=== PATIENT | female | born 1980 | race Caucasian/White ===

== ENCOUNTER 2016-03-04 09:58 | Day surgery (SDC) | payer OTHER ==
[2016-02-26 11:01] VITALS: BMI 23.0
[~2016-03-04] VITALS: Ht 167.6 cm; Wt 65.9 kg
[~2016-03-04 09:58] MED LIST: IBUP1CAP9 PO; LACTATED RINGER'S 1000ML 1,000 ML IV SCH; ONDA4TAB46 PO
[2016-03-04] MEDS ORDERED: MULT1PAK PO (10:15)
[2016-03-04 10:20] VITALS: BP 110/79; PULSE 69; TEMP 36.7; O2SAT 98; Ht 167.6 cm; Wt 65.9 kg
[2016-03-04] MEDS ORDERED: LIDOCAINE HCL 2% 2 ML VIAL (20MG/ML) ONE (12:43)
[2016-03-04] MEDS ORDERED: ONDANSETRON INJ 2 MG/ML 2 ML VIAL ONE (12:43)
[2016-03-04] MEDS ORDERED: ROCURONIUM BROMIDE 10 MG/ML 5 ML VIAL ONE (12:43)
[2016-03-04] MEDS ORDERED: PROPOFOL IV EMULSION 10 MG/ML 20 ML VIAL IV ONE (12:43)
[2016-03-04] MEDS ORDERED: MIDAZOLAM HCL 1 MG/ML 2ML VIAL ONE (12:43)
[2016-03-04] MEDS ORDERED: DEXAMETHASONE SOD INJ 4 MG/ML VIAL ONE (12:43)
[2016-03-04] MEDS ORDERED: FENTANYL CITRATE INJ 50 MCG/1 ML 2 ML VIAL ONE ×2 (12:43→14:49)
--- NOTE | 2016-03-04 13:21 | History & Physical Bridge Note ---
H&P Re-Evaluation Bridge Note: I have examined the patient, reviewed the History & Physical and in the interval since the performance of the History & Physical I have noted the following changes of clinical significance: No changes noted
[2016-03-04] MEDS ORDERED: HYDROmorphone INJ 1 MG/ML SYR IV PRN (13:30)
[2016-03-04] MEDS ORDERED: ATROPINE SULFATE 0.1 MG/ML 5ML SYR IV PRN (13:30)
[2016-03-04] MEDS ORDERED: EpHEDrine SULFATE INJ 50 MG/ML AMP IV PRN (13:30)
[2016-03-04] MEDS ORDERED: ONDANSETRON INJ 2 MG/ML 2 ML VIAL IV PRN ×2 (13:30→15:30)
[2016-03-04] MEDS ORDERED: SCOPOLAMINE 1.5 MG TDSY TD ONE (13:42)
[2016-03-04] MEDS ORDERED: KETOROLAC TROMETHAMINE 30 MG/ML VIAL ONE (14:14)
[2016-03-04] MEDS ORDERED: NEOSTIGMINE METHYLSULFATE 5 MG/5 ML SYR ONE (15:04)
[2016-03-04] MEDS ORDERED: GLYCOPYRROLATE INJ 0.2 MG/ML VIAL ONE (15:04)
[2016-03-04] MEDS ORDERED: BUPIVACAINE 0.5 % 5 MG/1 ML MPF 30ML VIAL INJ ONE (15:12)
[2016-03-04] MEDS ORDERED: SODIUM CHLORIDE 0.9% 1000ML 1,000 ML IV SCH (15:22)
--- NOTE | 2016-03-04 15:23 | [facility] Post Operative Brief Note ---
Immediate Operative Summary Operative Date Mar 04, 2016. Pre-Operative Diagnosis Dysmenorrhea, Metomenorrhagia Post-Operative Diagnosis Same Procedure(s) Performed Robotic assisted diagnostic laparoscopy with resection of endometriosis, drainage of left ovarian endometrioma Surgeon Dr Duncan Chief Petroleum Engineer Surgeon(s) Dr Mendez Estimated Blood Loss 20ml Findings Endometriosis Specimens A.Peritoneal biopsy bladder flap Drains None Anesthesia General Complication(s) None Disposition Recovery Room / PACU
[2016-03-04] MEDS ORDERED: MTR600X PO (15:24)
[2016-03-04] MEDS ORDERED: OXYC-57 PO (15:24)
--- NOTE | 2016-03-04 15:24 | Discharge Instructions ---
Discharge Instructions Admission Reason for Admission: Dysmenorrhea, Menometrorrhagia Discharge Discharge Diagnosis / Problem: endometriosis Discharge Goals Goal(s): Routine recovery after surgery Activity Recommendations Activity Limitations: per Instructions/Follow-up section . Instructions / Follow-Up Instructions / Follow-Up ACTIVITY RECOMMENDATIONS: * Rest the first 2-3 days. You should be back to your normal activity levels by day 3. * No heavy lifting for 2 weeks. * No intercourse, tampons or douching for 1-2 weeks. * You may shower the next day. * Do not drive anytime that you are taking narcotic pain medicines. RETURN TO SCHOOL/WORK: * May return to school or work after 2-3 days. DIET: Nausea may occur in the immediate post-operative period. If so, take clear liquids such as tea, bouillon, apple juice until all nausea has subsided, then resume usual diet. MEDICATIONS: Resume previous medications unless instructed otherwise by your surgeon. Ibuprofen 200mg 2-3 tablets every 4-6 hours as needed -- OR -- Aleve 2 tablets every 8-12 hours as needed for post-operative discomfort Medications are over the counter. Tylenol may be used if above medications are contraindicated or not preferred. Medication should be taken with food or milk. Do not take on an empty stomach. SPECIAL CARE INSTRUCTIONS: * Check temperature twice daily for one week. report any elevation over 101 degrees. * You may experience some vagina spotting and/or bleeding. This is normal for 1 -2 weeks and should not be heavier than a normal period. If it is unusual in amount, call your physician. * Post-operative discomfort may consist of a sore throat, a "bloated" feeling and pain in the shoulders. these are normal symptoms, which usually only last for 2-3 days. * Remove band-aids tomorrow and shower. There is no need to replace band-aids unless there is drainage or discomfort. FOLLOW UP VISIT: Call your doctor's office for a post-operative 2 week visit if not already scheduled. Current Hospital Diet Patient's current hospital diet: Discharge Diet Recommended Diet: Regular Diet Procedures Procedures Performed: Robotic assisted diagnostic laparoscopy with resection of endometriosis, drainage of left ovarian endometrioma Pending Studies Studies pending at discharge: no Medical Emergencies . Who to Call and When: Medical Emergencies: If at any time you feel your situation is an emergency, please call [phone] immediately. . Non-Emergent Contact Non-Emergency issues call your: Primary Care Provider . . "Provider Documentation" section prepared by Marcus Duncan. VTE Core Measure Inpt VTE Proph given/why not?: Devan Feldman, SCD's
[2016-03-04] MEDS ORDERED: OXYCODONE/ACETAMINOPHEN 5-325 TAB PO PRN ×2 (15:30)
[2016-03-04] MEDS ORDERED: KETOROLAC TROMETHAMINE 30 MG/ML VIAL IV. PRN (15:30)
[2016-03-04] MEDS ORDERED: IBUPROFEN 600 MG TAB PO PRN (15:30)
[2016-03-04] MEDS ORDERED: PROMETHAZINE HCL INJ 25 MG in SODIUM CHLORIDE 0.9% 50ML 50 ML IV PRN (15:30)
[2016-03-04] MEDS: FENTANYL CITRATE INJ 50 MCG/1 ML 2 ML VIAL IV PRN ×3 (15:40→15:50)
--- NOTE | 2016-03-04 16:13 | Anesthesiology Progress Note ---
Anesthesia Post Op Note Date & Time Mar 04, 2016 at 16:12 Vital Signs Pain Intensity: 4 Vital Signs Past 12 Hours Date Time Temp Pulse Resp B/P Pulse Ox O2 Delivery O2 Flow Rate FiO2 03/04/16 16:00 72 13 112/71 97 Room Air 03/04/16 15:50 65 14 127/77 100 Mask 10 03/04/16 15:40 76 17 124/82 100 Mask 10 03/04/16 15:34 36.0 104 14 139/90 100 Mask 10 03/04/16 10:20 36.7 69 16 110/79 98 Room Air Notes Mental Status: alert / awake / arousable, participated in evaluation Pt Amnestic to Procedure: Yes Nausea / Vomiting: adequately controlled Pain: adequately controlled Airway Patency, RR, SpO2: stable & adequate BP & HR: stable & adequate Hydration State: stable & adequate Anesthetic Complications: no major complications apparent
[2016-03-04 16:15] VITALS: BP 107/67; PULSE 75; TEMP 36.7; O2SAT 99
[2016-03-04 16:45] VITALS: BP 114/69; PULSE 66; O2SAT 100
--- NOTE | 2016-03-04 16:46 | OPERATIVE REPORT ---
DATE OF OPERATION: 03/04/2016 PREOPERATIVE DIAGNOSIS: Pelvic pain. POSTOPERATIVE DIAGNOSIS: Endometriosis. PROCEDURES: Laparoscopic resection of endometriosis, drainage of endometrioma. SURGEON: Dr. Duncan. CEMENT CONVEYOR OPERATOR: Dr. Mendez. INTRAOPERATIVE CONSULT: Dr. Michael Cortez from general surgery. ANESTHETIC: General. SPECIMENS: Pelvic peritoneum resection of bladder region. DRAINS: None. COMPLICATIONS: None. DISPOSITION: Recovery room. DESCRIPTION OF PROCEDURE: Reba was given a general anesthetic, prepped and draped in dorsal lithotomy position in [facility]. Bladder drained with a Martinez catheter and a cervical acorn manipulator attached to the cervix, attached to the Allis clamp. Gloves changed and a subumbilical scalpel incision was made with 11 blade, dissecting down through subcutaneous fat to the fascia in the midline. Fascia then cut, rectus muscle split. Peritoneal cavity entered and blunt-tipped Frank trocar placed with balloon inflated with air. CO2 gas and insufflated the abdomen. FINDINGS: Upper abdomen normal. Trendelenburg position obtained. There was no sign of visceral organ injury. Two robotic ports were placed in left and right side and a left upper quadrant 8 mm accessory port. On visualization of the pelvis things were abnormal. First of all there was a small endometrioma on the left side. This was drained spontaneously with a manipulator of a blunt probe. There was an area of endometriosis clearly on the anterior bladder flap with classic hemosiderin laden lesion. The left ovary once it was released from the attachment, appeared to have been attached to a lesion near the bowel. In fact, this looked like bowel that was involved with endometriosis. It had been tented up leftward and towards the superior aspect of the cul-de-sac. We docked the robot at this stage, arm #1 monopolar loretta, arm #2 bipolar [place]. Using the uterine manipulator I was able to resect the area in the bladder flap region without difficulty and a small specimen was sent off. In the left side, I was able to free up the ovary completely from the lesion. I carefully inspected the rectal lesion and actually performed a rectal exam as well. It appeared to be bowel and it was firm. I did have an intraoperative consult with Dr. Cortez and discussed the wisdom of resecting this, certainly had not prepared the patient emotionally for a possibility of colostomy, so we felt this could be unwise. It did appear benign and appeared to be associated with endometriosis. The left ureter appeared normal as well. There were no other overt lesions for endometriosis seen specifically, the ovaries, cul-de-sac, pelvic sidewalls and fallopian tubes all appeared within normal limits as was the appendix. It should be commented on rectal exam I was able to feel that the lesion actually felt anterior to the rectum; however, I think this was likely a loop of colon anterior to my rectal exam. At this stage after generous irrigation and suction, I removed the instruments and then undocked the robot, ports removed, gas allowed to escape and then incisions injected with 0.5% Marcaine. Fascia carefully closed with 0 Vicryl, incisions closed 4-0 subcuticular Monocryl and Dermabond. Sponge and instrument counts correct, Martinez removed from the bladder, and instruments removed from the cervix and vagina. ESTIMATED BLOOD LOSS: 20 mL. I attest to the content of the Intraoperative Record and any orders documented therein. Any exceptio ns are noted below.
[2016-03-04 17:15] VITALS: BP 120/72; PULSE 74; TEMP 37.1; O2SAT 97
[2016-11-21] MEDS ORDERED: PROM25TA9 PO (09:03)
[2016-11-21] MEDS ORDERED: lupron IM (09:03)
[2016-11-21] MEDS ORDERED: POLY335019 PO (09:03)
[2016-11-21] MEDS ORDERED: ACET-1256 PO (09:03)
[2016-11-21] MEDS ORDERED: NORE5TAB5 PO (09:04)
[2017-01-17] MEDS ORDERED: FLUO10CA48 PO (08:23)
== END 2016-03-04 17:32 | disposition home or self-care (01) ==
LOC: C.ACU 09:58
PROVIDERS: ATTEND Obstetrics & Gynecology
DX: N80.9 Endometriosis, unspecified (principal); N94.6 Dysmenorrhea, unspecified; N92.1 Excessive and frequent menstruation with irregular cycle; Z88.5 Allergy status to narcotic agent; Z83.49 Family history of other endocrine, nutritional and metabolic diseases; Z80.3 Family history of malignant neoplasm of breast; F17.200 Nicotine dependence, unspecified, uncomplicated
CPT/HCPCS: 58662; S2900

== ENCOUNTER 2016-08-19 16:04 | Emergency (ER) | payer OTHER ==
[~2016-08-19] VITALS: Ht 165.1 cm; Wt 67.3 kg
[~2016-08-19 16:04] MED LIST changes: -LACTATED RINGER'S 1000ML 1,000 ML IV SCH; +MTR600X PO; +MULT1PAK PO; +OXYC-57 PO
[2016-08-19 16:14] VITALS: TEMP 36.7; Ht 165.1 cm; Wt 67.3 kg
[2016-08-19] MEDS ORDERED: SCOP1.5D2 TD (17:00)
[2016-08-19] MEDS ORDERED: AMOX875T PO (17:13)
--- NOTE | 2016-08-19 17:31 | EMERGENCY ROOM VISIT NOTE ---
History First contact with patient: 16:29 Chief Complaint: OTHER COMPLAINT Stated Complaint: LUMPS W/PAIN BEHIND BOTH EARS History of Present Illness The patient is a 35 year old female who presents to the Emergency Room with complaints of lumps behind her ears and mild left facial swelling and pain. The patient reports that she has had the symptoms since around , or approximately 3 weeks ago. She reports that her initial symptoms only lasted a few days then resolved. It is now starting to worsen again. She denies any other symptoms including runny nose, sinus congestion, sore throat or headaches. She also denies any difficulty swallowing or postnasal drip, chest pain or shortness of breath. The patient denies any other known sick contacts. She is finance clerk staff as employment. She denies contact with any one else with flulike symptoms or facial swelling. The patient reports that she did have an MMR immunization as a child. The patient was seen at the [facility] urgent care center and referred here for further management. Review of Systems 10 system review was performed and was negative except for pertinent positives and negatives as indicated in history of present illness Past Medical/Surgical History Medical Problems: (1) Dysmenorrhea, Unspecified (2) Endometriosis, Unspecified (3) Nicotine Dependence, Unspecified, Uncomplicated Surgical Problems: (1) History of laparoscopy Family History FH: breast cancer Social History Smoking Status: Current Every Day Smoker Alcohol Use: occasionally Marital Status: Housing Status: lives with family Occupation Status: employed Current/Historical Medications Scheduled Amoxicillin & Pot Clavulanate (Augmentin 875-125 mg), 1 TAB PO BID Scopolamine (Transderm-Scop), 3 MG TD Q72H Scheduled PRN Ibuprofen (Ibuprofen), 2 CAP PO TID PRN for Pain Ibuprofen (Ibuprofen), 600 MG PO Q6H PRN for Pain Ondansetron Hcl (Zofran), 4 MG PO BID PRN for Nausea Allergies Coded Allergies: Codeine (Verified Adverse Reaction, Severe, nausea, 08/19/16) Physical Exam Vital Signs Date Time Temp Pulse Resp B/P (MAP) Pulse Ox O2 Delivery O2 Flow Rate FiO2 08/19/16 16:14 36.7 98 20 117/79 100 Room Air Physical Exam CONSTITUTIONAL: Healthy and well nourished. Alert and oriented X 3 with positive affect. She does not appear acutely ill or toxic. HEENT: Normocephalic, atraumatic. Pupils equal, round and reactive. Bilateral ears are clear without TM bulging, erythema, air-fluid levels, purulent effusion or external auditory canal erythema. Nares are clear. The patient has minimal left facial edema without overriding erythema. She has minimal tenderness to palpation over the left parotid gland, no discomfort over the right. OROPHARYNX: No posterior pharyngeal erythema, tonsillar hypertrophy or exudates. Negative trismus. No other oral lesions noted. NECK: Full active range of motion without discomfort. LYMPHATICS: The patient has minimal left posterior and anterior cervical adenopathy. RESPIRATORY: Clear to auscultation bilaterally with no wheezing, crackles, rhonchi or stridor. CARDIOVASCULAR: Regular rate and rhythm with no murmurs, rubs or gallops. GASTROINTESTINAL: Bowel sounds present in all quadrants. Soft and nontender to palpation. No obvious hepatosplenomegaly. MUSCULOSKELETAL: Full range of motion of all joints without discomfort. INTEGUMENTARY: No rash or other significant dermatologic conditions noted. NEUROLOGIC: No focal neurologic deficits noted. Facial sensations are intact. Medical Decision & Procedures ED Course Patient history and physical exam were performed. Nurse's notes were reviewed. Vital signs were reviewed and were normal. The patient was advised that her family patient does shows some left cervical adenopathy and left facial swelling. I did discuss several differentials, including viral versus bacterial infection, parotitis and mumps. The patient will be covered with Augmentin antibiotics. She was encouraged to intermittently apply a warm compress to areas of discomfort. Ibuprofen and Tylenol in alternating fashion for pain relief. Patient reports that she has insurance, but does not have a PCP. She tried to call the [facility], but cannot get an appointment until August. I did have our patient case coordinator call the office, and was able to secure an appointment for her in the [place] office on Friday at 2: 30 PM. She was instructed to return to the emergency department for any significantly worsening swelling, high fever, difficulty swallowing or other concerning symptoms. The patient rated her discomfort a 4 out of 10 at the time of discharge. She refused any ibuprofen or Tylenol while in the emergency department. Prior to discharge, the nurse reported that she had additional lumps behind her ear that I did not feel. I reexamined the patient and advised her that this again is cervical adenopathy. She was also concerned that I did not perform any lab work or imaging studies as she was told that we would do so when she went to the [facility] urgent care center. The patient was advised that I have performed my own evaluation, and do not feel that the studies are warranted. I explained that the end result would still involve antibiotic therapy. I also explained that her PCP would likely order additional lab studies on Friday if her symptoms are not improving. I offered to perform these additional studies, but the patient reported that she would rather go home at this point. She was welcome to return to the emergency department for any progressively worsening swelling, pain or developing fever. The patient and were happy with plan of care at the time of discharge. Medical Decision Impression Primary Impression: Facial edema Additional Impression: Cervical adenopathy Departure Information Dispostion Home / Self-Care Prescriptions Amoxicillin & Pot Clavulanate (Augmentin 875-125 mg) 1 Tab Tab 1 TAB PO BID for 10 Days, #20 TAB Prov: Leoncio Arambula PA 08/19/16 Referrals Kirk Mckeon MD No Doctor, Assigned (PCP) Forms HOME CARE DOCUMENTATION FORM, IMPORTANT VISIT INFORMATION Patient Instructions My [facility] Additional Instructions Complete all Augmentin antibiotic as prescribed. Intermittently apply a warm moist compress to the face. Ibuprofen 600 mg and/or Tylenol 1000 mg every 8 hours. You may also alternate these medications for more effective pain relief: Ibuprofen --4 HRS--> Tylenol --4 HRS--> ibuprofen --4 HRS--> Tylenol .... Problem Qualifiers
[2016-08-19 17:41] VITALS: BP 115/76; PULSE 95; O2SAT 100
[2016-11-21] MEDS ORDERED: ACET-1256 PO (09:03)
[2016-11-21] MEDS ORDERED: lupron IM (09:03)
[2016-11-21] MEDS ORDERED: POLY335019 PO (09:03)
[2016-11-21] MEDS ORDERED: PROM25TA9 PO (09:03)
[2016-11-21] MEDS ORDERED: NORE5TAB5 PO (09:04)
[2017-01-17] MEDS ORDERED: FLUO10CA48 PO (08:23)
== END 2016-08-19 17:45 | disposition home or self-care (01) ==
LOC: C.EDB 16:05 → C.EDC 17:45
DX: R60.0 Localized edema (principal); R59.0 Localized enlarged lymph nodes; F17.210 Nicotine dependence, cigarettes, uncomplicated; Z80.3 Family history of malignant neoplasm of breast

== ENCOUNTER → 2016-08-23 | Outpatient (CLI) | payer OTHER ==
[~2016-08-23] MED LIST changes: +ACET-1256 PO; +AMOX875T PO; +LPRI375 IM; -MULT1PAK PO; +NORE5TAB5 PO; +POLY335019 PO; +PROM25TA9 PO; +SCOP1DIS14 TD; +lupron IM
[2016-08-23 16:17] LABS: BASO % 0.5 %; BASO ABS # 0.04 K/uL (0-0.2); COMPLETE YES; EOS % 9.7 %; HEMATOCRIT 40.7 % (37-47); IG% 0.1 %; LYMPH % 25.9 %; MEAN CELL VOLUME 86.6 fL (80-100); MEAN CORPUSCULAR HEMOGLOBIN 28.9 pg (25-34); MEAN CORPUSCULAR HGB CONC 33.4 g/dl (32-36); MEAN PLATELET VOLUME 10.3 fL (7.4-10.4); MONO % 8.7 %; NEUT % 55.1 %; PLATELET COUNT 261 K/uL (130-400); WHITE BLOOD COUNT 7.71 K/uL (4.8-10.8)
[2016-08-23 16:23] LABS: URINE APPEARANCE CLEAR (CLEAR); URINE BILIRUBIN NEG (NEG); URINE COLOR YELLOW; URINE EPITHELIAL CELL AUTO 0-5 /lpf (0-5); URINE NITRITE NEG (NEG); URINE PH 6.5 (4.5-7.5); URINE SPECIFIC GRAVITY 1.012 (1.000-1.030); UROBILINOGEN NEG (NEG); ZZUR CULT IF INDIC CLEAN CATCH NO
[2016-08-23 16:28] LABS: BLOOD UREA NITROGEN 9 mg/dl (7-18); BUN/CREATININE RATIO 11.9 (10-20); CALCIUM 9.3 mg/dl (8.5-10.1); CARBON DIOXIDE 27 mmol/L (21-32); CHLORIDE 105 mmol/L (98-107); CREATININE 0.75 mg/dl (0.60-1.20); GLUCOSE 82 mg/dl (70-99); POTASSIUM 4.5 mmol/L (3.5-5.1); SODIUM 139 mmol/L (136-145)
[2016-08-23 16:39] LABS: ALB/GLOB RATIO 1.2 (0.9-2); ALKALINE PHOSPHATASE 36 U/L (45-117); ALT/SGPT 22 U/L (12-78); AST/SGOT 9 U/L (15-37)
[2016-08-23 16:50] LABS: MANUAL MICROSCOPIC REQUIRED? NO; REVIEW REQ? NO
[2016-08-23 17:51] LABS: LYME DISEASE AB IGG NEG (NEG); LYME DISEASE AB IGM NEG (NEG)
== END | disposition home or self-care (01) ==
LOC: C.LABBFT 12:02
PROVIDERS: ATTEND Physician Assistant Medical
DX: R59.1 Generalized enlarged lymph nodes (principal); R53.83 Other fatigue

== ENCOUNTER 2016-12-11 16:03 | Emergency (ER) | payer OTHER ==
[~2016-12-11] VITALS: Ht 165.1 cm; Wt 61.5 kg
[~2016-12-11 16:03] MED LIST changes: -AMOX875T PO; -IBUP1CAP9 PO; -LPRI375 IM; -MTR600X PO; -OXYC-57 PO
[2016-12-11 16:13] VITALS: TEMP 37.4; Ht 165.1 cm; Wt 61.5 kg
[2016-12-11] MEDS ORDERED: ONDANSETRON INJ 2 MG/ML 2 ML VIAL IV STA (16:35)
[2016-12-11] MEDS ORDERED: SODIUM CHLORIDE 0.9% 1000ML 1,000 ML IV STA (16:35)
[2016-12-11] MEDS ORDERED: MoRPHine SULFATE 10 MG/ML CARP/VIAL IV STA ×3 (16:35→17:55)
[2016-12-11] MEDS ORDERED: OPTIRAY 320 IV PRN (16:45)
[2016-12-11] MEDS ORDERED: LPRI375 IM (16:46)
[2016-12-11] MEDS ORDERED: MoRPHine SULFATE 4 MG/ML 1 ML CARP\\VIAL ONE (16:49)
[2016-12-11] MEDS ORDERED: MoRPHine SULFATE 2 MG/ML CARP ONE (16:50)
[2016-12-11 16:57] LABS: BASO % 0.2 %; BASO ABS # 0.02 K/uL (0-0.2); COMPLETE YES; EOS % 0.2 %; HEMATOCRIT 44.5 % (37-47); IG% 0.2 %; LYMPH % 19.2 %; LYMPH ABS # 1.97 K/uL (1.2-3.4); MEAN CELL VOLUME 86.7 fL (80-100); MEAN CORPUSCULAR HEMOGLOBIN 28.7 pg (25-34); MEAN PLATELET VOLUME 9.2 fL (7.4-10.4); MONO % 11.3 %; NEUT % 68.9 %; PLATELET COUNT 308 K/uL (130-400); RED BLOOD COUNT 5.13 M/uL (4.2-5.4); WHITE BLOOD COUNT 10.27 K/uL (4.8-10.8)
[2016-12-11 17:16] LABS: BUN/CREATININE RATIO 11.5 (10-20); CALCIUM 9.5 mg/dl (8.5-10.1); CREATININE 0.81 mg/dl (0.60-1.20); POTASSIUM 3.6 mmol/L (3.5-5.1)
--- NOTE | 2016-12-11 19:15 | DIAGNOSTIC IMAGING REPORT ---
CT ABD/PELVIS IV AND ORAL CONT CLINICAL HISTORY: Left lower quadrant abdominal pain COMPARISON STUDY: None. TECHNIQUE: Following the IV administration of 93 mL of Optiray-320, CT scan of the abdomen and pelvis was performed from the lung bases to the proximal femurs. Images are reviewed in the axial, sagittal, and coronal planes. IV contrast was administered without complication. A dose lowering technique was utilized adhering to the principles of ALARA. CT DOSE: 290.80 mGy.cm FINDINGS: Lower chest: The heart is normal in size and configuration, without pericardial effusion. The lung bases and pleural spaces are clear. Liver: The contrast-enhanced liver is normal in size, contour, and attenuation. There is no intrahepatic biliary ductal dilatation. The hepatic veins and portal veins are patent. Gallbladder: Unremarkable. Spleen: Normal in size and attenuation. Pancreas: Unremarkable. Adrenal glands: Unremarkable. Kidneys: There is symmetric renal cortical enhancement. The kidneys are normal in size without hydronephrosis. Bowel: There are no transition zones indicate bowel obstruction. The appendix appears normal. There is no acute diverticulitis. Peritoneum: There is no intraperitoneal free air or abdominal ascites. Vasculature: The abdominal aorta is normal in course and caliber. Adenopathy: None. Pelvic viscera: The bladder, and pelvic viscera are unremarkable. Skeletal structures: There is bilateral L4 spondylolysis. There is partial sacralization of the L5 vertebra. IMPRESSION: 1. No acute intra-abdominal or pelvic findings 2. No evidence of bowel obstruction. No evidence of free air 3. Normal appendix. No evidence of acute diverticulitis Electronically signed by: nEdy Han M.D. 12/11/2016 7:14 PM Dictated Date/Time: 12/11/2016 7:09 PM
[2016-12-11] MEDS ORDERED: OXYC-57 PO (19:43)
[2016-12-11] MEDS ORDERED: PERCOCET HOME PACK PO ONE (19:45)
[2016-12-11] MEDS ORDERED: ONDANSETRON HOME PACK 4MG OD TAB PO ONE (19:45)
[2016-12-11 19:48] LABS: URINE APPEARANCE CLEAR (CLEAR); URINE BILIRUBIN NEG (NEG); URINE COLOR DK YELLOW; URINE EPITHELIAL CELL AUTO >30 /lpf (0-5); URINE NITRITE NEG (NEG); URINE PH 6.5 (4.5-7.5); URINE SPECIFIC GRAVITY 1.019 (1.000-1.030); UROBILINOGEN NEG (NEG)
[2016-12-11 19:51] LABS: MANUAL MICROSCOPIC REQUIRED? NO; REVIEW REQ? YES
[2016-12-11 19:55] VITALS: BP 117/74; PULSE 62; O2SAT 98
--- NOTE | 2016-12-12 01:43 | EMERGENCY ROOM VISIT NOTE ---
ED Visit Note First contact with patient: 16:21 Chief Complaint:, Having stabbing pains in my lower left abdomen. History of Present Illness: Ms. Busch is a 36-year-old white female ambulates into the ED accompanied by her complaining of left lower quadrant abdominal pain. Historically patient reports history of stage for endometriosis. She has had 2 previous laparoscopic surgeries to remove the in the medial chest with the last one being March 2016. Additionally she reports that she is currently on Lupron injections. Patient reports a gradual onset of severe left lower quadrant abdominal pain that started approximately 2 days ago. Since that time the pain has been constant. The pain is currently described as ramping and an achy sensation throughout the lower abdomen and a severe stabbing like pain in the left lower quadrant. The pain is radiating around the abdomen and into the left back. She rates her discomfort 8/10. The pain worsens with sitting and standing movements and palpation. She has not identified any alleviating factors related to the pain. She has been taken Tylenol for her pain without relief of her discomfort. Associated with the pain there has been nausea and vomiting and 2 days ago she reports she had a small amount of vaginal spotting. Patient denies fevers, chills, sweats, skin eruptions, skin color changes, upper respiratory tract symptoms, shortness of breath, chest pain, diarrhea, constipation, rectal bleeding, black/tarry stools, urinary symptoms, hematuria, vaginal discharge. Review of Systems: As noted above in history of present illness. All body systems were reviewed and found to be negative as noted above. Past Medical History: As previously noted. Current Medications: Zofran, scopolamine, MiraLAX, Phenergan, Tylenol, Lupron, Aygestin. Allergies to Medications: Codeine, phenyl. Social History: Patient is currently employed; she feels safe in her home environment; she admits to tobacco and alcohol use. Physical Examination: Vital Signs: Date Time Temp Pulse Resp B/P (MAP) Pulse Ox O2 Delivery O2 Flow Rate FiO2 12/11/16 19:55 62 18 117/74 98 12/11/16 18:35 63 16 112/70 97 Room Air 12/11/16 18:04 66 18 137/93 96 Room Air 12/11/16 16:13 37.4 104 18 139/87 96 Room Air GENERAL: 36-year-old female in moderate distress due to pain, nontoxic-appearing , afebrile and hemodynamically stable. NEUROLOGICAL: Awake, alert and oriented to person, place and time. Answering questions appropriately and following commands. SKIN: Warm, dry and pink. No soft tissue eruptions or trauma noted. HEENT: Atraumatic and normocephalic. PERRLA. Sclera white and conjunctiva pink. Airway patent. Speech normal and clear. Trachea midline. No jugular venous distention. BACK: No tenderness over the bony spine. No CVA tenderness. THORAX: Lungs sounds are clear to auscultation and equal bilaterally with symmetrical chest wall. No wheezing, rales or rhonchi. No crepitus, tenderness , subcutaneous air or deformities noted. HEART: Regular rate and rhythm. No gallops, rubs or murmurs are appreciated. ABDOMEN: Flat and soft with mild diffuse tenderness throughout the lower abdomen /pelvis with prominence on the left. No tenderness over McBurney's point. Decreased bowel sounds in all quadrants. No guarding, rigidity or organomegaly. EXTREMITIES: Moves all extremities well on command and with purpose. All distal neurovascular statuses are intact and equal bilaterally. ED Course: Patient is assessed as noted above. Laboratory Testing: Test 12/11/16 16:45 12/11/16 18:55 Range/Units White Blood Count 10.27 4.8-10.8 K/uL Red Blood Count 5.13 4.2-5.4 M/uL Hemoglobin 14.7 12.0-16.0 g/dL Hematocrit 44.5 37-47 % Mean Corpuscular Volume 86.7 80-100 fL Mean Corpuscular Hemoglobin 28.7 25-34 pg Mean Corpuscular Hemoglobin Concent 33.0 32-36 g/dl Platelet Count 308 130-400 K/uL Mean Platelet Volume 9.2 7.4-10.4 fL Neutrophils (%) (Auto) 68.9 % Lymphocytes (%) (Auto) 19.2 % Monocytes (%) (Auto) 11.3 % Eosinophils (%) (Auto) 0.2 % Basophils (%) (Auto) 0.2 % Neutrophils # (Auto) 7.08 1.4-6.5 K/uL Lymphocytes # (Auto) 1.97 1.2-3.4 K/uL Monocytes # (Auto) 1.16 0.11-0.59 K/uL Eosinophils # (Auto) 0.02 0-0.5 K/uL Basophils # (Auto) 0.02 0-0.2 K/uL RDW Standard Deviation 45.0 36.4-46.3 fL RDW Coefficient of Variation 14.1 11.5-14.5 % Immature Granulocyte % (Auto) 0.2 % Immature Granulocyte # (Auto) 0.02 0.00-0.02 K/uL Sodium Level 138 136-145 mmol/L Potassium Level 3.6 3.5-5.1 mmol/L Chloride Level 102 98-107 mmol/L Carbon Dioxide Level 28 21-32 mmol/L Anion Gap 8.0 3-11 mmol/L Blood Urea Nitrogen 9 7-18 mg/dl Creatinine 0.81 0.60-1.20 mg/dl Est Creatinine Clear Calc Drug Dose 85.6 ml/min Estimated GFR () 107.5 Estimated GFR (Non- 92.8 BUN/Creatinine Ratio 11.5 10-20 Random Glucose 121 70-99 mg/dl Calcium Level 9.5 8.5-10.1 mg/dl Total Bilirubin 0.8 0.2-1 mg/dl Direct Bilirubin 0.2 0-0.2 mg/dl Aspartate Amino Transf (AST/SGOT) 12 15-37 U/L Alanine Aminotransferase (ALT/SGPT) 24 12-78 U/L Alkaline Phosphatase 38 45-117 U/L Total Protein 7.6 6.4-8.2 gm/dl Albumin 4.0 3.4-5.0 gm/dl Lipase 78 73-393 U/L Urine Color DK YELLOW Urine Appearance CLEAR CLEAR Urine pH 6.5 4.5-7.5 Urine Specific [place] 1.019 1.000-1.030 Urine Protein NEG NEG Urine Glucose (UA) NEG NEG Urine Ketones 1+ NEG Urine Occult Blood 2+ NEG Urine Nitrite NEG NEG Urine Bilirubin NEG NEG Urine Urobilinogen NEG NEG Urine Leukocyte Esterase SMALL NEG Urine WBC (Auto) 1-5 0-5 /hpf Urine RBC (Auto) 0-4 0-4 /hpf Urine Hyaline Casts (Auto) 1-5 0-5 /lpf Urine Epithelial Cells (Auto) >30 0-5 /lpf Urine Bacteria (Auto) NEG NEG Urine Yeast (Auto) NONE PRSENT Urine Test NEG NEG Contrast abdominal/pelvic CT: Was reviewed by myself and read by the radiologist showing no acute intra-abdominal or intrapelvic findings. No evidence of bowel obstruction or free air. Normal-appearing appendix and no evidence of acute diverticulitis. Patient was hydrated with normal saline and she received a total of 18 mg of morphine and 4 mg of Zofran for her symptoms. Patient was reassessed multiple times during her stay in the emergency department. Patient's case was reviewed with Dr. Holliday; we agreed on diagnostic approach, treatment, disposition and plan. Patient was educated about today's findings and instructed on her treatment plan ; she verbalized understanding and agreement with this plan. Clinical Impression: Bilateral lower abdominal pain. Decision-Making: Initially my differential diagnosis I considered endometriosis exacerbation, diverticulitis, bowel abscess, constipation, ruptured ovarian cyst , ovarian torsion, kidney stone and other causes. Disposition: Patient discharged home in stable condition accompanied by her ; prior to departure she was reassessed and subjectively reported she was feeling better and rated her discomfort 2/10. Plan: Patient was placed on a sliding pain scale of acetaminophen and [place]. Patient was encouraged to continue her other medications. 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 Patient was encouraged return ED for worsening/uncontrolled pain, fevers, worsening vomiting, bloody vomitus, bloody vaginal discharge or any new/ concerning symptoms.
== END 2016-12-11 20:15 | disposition home or self-care (01) ==
LOC: C.EDB 16:03 → C.EDC 20:15
DX: R10.32 Left lower quadrant pain (principal); R10.31 Right lower quadrant pain; R11.2 Nausea with vomiting, unspecified; N80.9 Endometriosis, unspecified

== ENCOUNTER → 2016-12-17 | Outpatient (CLI) | payer OTHER ==
[~2016-12-17] MED LIST changes: +LPRI375 IM; +OXYC-57 PO; -lupron IM
[2016-12-17 14:41] LABS: BASO % 0.5 %; BASO ABS # 0.04 K/uL (0-0.2); COMPLETE YES; EOS % 2.4 %; HEMATOCRIT 38.4 % (37-47); IG% 0.3 %; LYMPH % 31.6 %; LYMPH ABS # 2.52 K/uL (1.2-3.4); MEAN CELL VOLUME 88.5 fL (80-100); MEAN CORPUSCULAR HGB CONC 32.8 g/dl (32-36); MEAN PLATELET VOLUME 9.9 fL (7.4-10.4); NEUT % 55.2 %; PLATELET COUNT 266 K/uL (130-400); RED BLOOD COUNT 4.34 M/uL (4.2-5.4); WHITE BLOOD COUNT 7.98 K/uL (4.8-10.8)
== END | disposition home or self-care (01) ==
LOC: C.LAB1850 12:44
PROVIDERS: ATTEND Physician Assistant Medical
DX: Z01.812 Encounter for preprocedural laboratory examination (principal)

== ENCOUNTER → 2017-01-09 | Outpatient (CLI) | payer OTHER ==
[~2017-01-09] MED LIST changes: +SCOP1.5D2 TD; -SCOP1DIS14 TD
--- NOTE | 2017-01-09 08:30 | DIAGNOSTIC IMAGING REPORT ---
GALLBLADDER-ABD LIMITED HISTORY: 36 years-old Female ABDOMINAL PAIN acute generalized abdominal pain COMPARISON: Right upper quadrant ultrasound 11/02/2015, CT 12/11/2016 TECHNIQUE: Multiple real-time sonographic images of the abdominal right upper quadrant were obtained assessing grayscale appearance and color flow FINDINGS: Imaged pancreas is unremarkable with distal body and tail obscured by bowel gas. The liver is unremarkable without focal lesion or intrahepatic biliary ductal dilation identified. Common bile duct is normal, 0.4 cm. The gallbladder is within normal limits without shadowing cholelithiasis, gallbladder wall thickening or pericholecystic fluid collections. The imaged right kidney is unremarkable without hydronephrosis. IMPRESSION: 1. No cholelithiasis or sonographic evidence of acute cholecystitis. 2. No biliary ductal dilation The above report was generated using voice recognition software. It may contain grammatical, syntax or spelling errors. Electronically signed by: Orlin Chappell M.D. 01/09/2017 8:28 AM Dictated Date/Time: 01/09/2017 8:26 AM
== END | disposition home or self-care (01) ==
LOC: C.ULTRBC 07:56
PROVIDERS: ATTEND Nurse Practitioner Adult Health
DX: R11.2 Nausea with vomiting, unspecified (principal); R10.9 Unspecified abdominal pain

== ENCOUNTER → 2017-01-13 | Outpatient (CLI) | payer OTHER ==
[~2017-01-13] MED LIST changes: +FLUO10CA48 PO
[2017-01-13 15:17] LABS: ALT/SGPT 33 U/L (12-78); AST/SGOT 13 U/L (15-37); BLOOD UREA NITROGEN 9 mg/dl (7-18); BUN/CREATININE RATIO 10.9 (10-20); CARBON DIOXIDE 30 mmol/L (21-32); CHLORIDE 100 mmol/L (98-107); CREATININE 0.79 mg/dl (0.60-1.20); GLUCOSE 90 mg/dl (70-99); POTASSIUM 3.3 mmol/L (3.5-5.1); SODIUM 139 mmol/L (136-145)
[2017-01-13 15:28] LABS: ALB/GLOB RATIO 1.1 (0.9-2); ALKALINE PHOSPHATASE 35 U/L (45-117); AMYLASE 34 U/L (25-115)
[2017-01-13 16:47] LABS: URINE APPEARANCE CLEAR (CLEAR); URINE BILIRUBIN NEG (NEG); URINE COLOR YELLOW; URINE NITRITE NEG (NEG); URINE PH 7.5 (4.5-7.5); URINE SPECIFIC GRAVITY 1.012 (1.000-1.030); UROBILINOGEN NEG (NEG)
[2017-01-13 16:48] LABS: MANUAL MICROSCOPIC REQUIRED? YES; REVIEW REQ? NO
[2017-01-13 17:02] LABS: URINE BACTERIA 2+ (NEG)
== END | disposition home or self-care (01) ==
LOC: C.LAB1850 13:20
PROVIDERS: ATTEND Nurse Practitioner Adult Health
DX: G43.A0 Cyclical vomiting, in migraine, not intractable (principal); R30.0 Dysuria

== ENCOUNTER → 2017-01-15 | Outpatient (CLI) | payer OTHER | END | disposition home or self-care (01) | LOC: C.LAB1850 15:34 | PROVIDERS: ATTEND Registered Nurse | DX: R11.2 Nausea with vomiting, unspecified (principal) ==

== ENCOUNTER → 2017-01-22 | Outpatient (CLI) | payer OTHER ==
[~2017-01-22] MED LIST changes: -OXYC-57 PO; +OXYC1TAB3 PO; -PROM25TA9 PO
--- NOTE | 2017-01-22 12:34 | DIAGNOSTIC IMAGING REPORT ---
KUB HISTORY: R10.9 Abdominal pain Change in bowels - constipation [id number] COMPARISON: Abdomen and pelvis CT 12/11/2016. FINDINGS: The bowel gas pattern is unremarkable. There are no dilated loops of small bowel to suggest an obstruction. No renal calculi. No ureteral calculi. No pneumoperitoneum or pneumatosis. IMPRESSION: Unremarkable KUB. Electronically signed by: Leonides Mello M.D. 01/22/2017 12:33 PM Dictated Date/Time: 01/22/2017 12:30 PM
== END | disposition home or self-care (01) ==
LOC: C.RAD1850 12:07
PROVIDERS: ATTEND Physician Assistant
DX: R10.9 Unspecified abdominal pain (principal); K59.00 Constipation, unspecified

== ENCOUNTER 2017-01-24 11:59 | Emergency (ER) | payer OTHER ==
[~2017-01-24] VITALS: Ht 165.1 cm; Wt 66.5 kg
[~2017-01-24 11:59] MED LIST changes: -OXYC1TAB3 PO
[2017-01-24 12:25] VITALS: Ht 165.1 cm; Wt 66.5 kg
[2017-01-24] MEDS ORDERED: ACETAMINOPHEN 500 MG TAB PO STA (13:05)
[2017-01-24] MEDS ORDERED: MoRPHine SULFATE 4 MG/ML 1 ML CARP\\VIAL IV STA (13:05)
[2017-01-24] MEDS ORDERED: ONDANSETRON INJ 2 MG/ML 2 ML VIAL IV STA (13:05)
--- NOTE | 2017-01-24 13:36 | DIAGNOSTIC IMAGING REPORT ---
CHEST ONE VIEW PORTABLE CLINICAL HISTORY: ABDOMINAL PAIN/GI dyspnea COMPARISON STUDY: No previous studies for comparison. FINDINGS: The bones soft tissues and hemidiaphragms are normal. The cardiomediastinal silhouette is normal. The lungs are clear. The pulmonary vasculature is normal. IMPRESSION: Negative chest. The above report was generated using voice recognition software. It may contain grammatical, syntax or spelling errors. Electronically signed by: Michael Cruz M.D. 01/24/2017 1:35 PM Dictated Date/Time: 01/24/2017 1:34 PM
[2017-01-24 13:45] VITALS: TEMP 37
[2017-01-24 13:52] LABS: URINE APPEARANCE CLEAR (CLEAR); URINE BILIRUBIN NEG (NEG); URINE COLOR YELLOW; URINE NITRITE NEG (NEG); URINE PH 6.5 (4.5-7.5); URINE SPECIFIC GRAVITY 1.016 (1.000-1.030); UROBILINOGEN NEG (NEG); ZZUR CULT IF INDIC CLEAN CATCH NO
[2017-01-24 13:54] LABS: MANUAL MICROSCOPIC REQUIRED? NO; REVIEW REQ? NO
[2017-01-24 14:07] LABS: BASO % 0.5 %; BASO ABS # 0.04 K/uL (0-0.2); COMPLETE YES; EOS % 1.2 %; HEMATOCRIT 37.7 % (37-47); IG% 0.1 %; LYMPH % 27.6 %; LYMPH ABS # 2.21 K/uL (1.2-3.4); MEAN CELL VOLUME 90.4 fL (80-100); MEAN CORPUSCULAR HEMOGLOBIN 29.7 pg (25-34); MEAN CORPUSCULAR HGB CONC 32.9 g/dl (32-36); MEAN PLATELET VOLUME 9.5 fL (7.4-10.4); MONO % 11.6 %; PLATELET COUNT 263 K/uL (130-400); RED BLOOD COUNT 4.17 M/uL (4.2-5.4); WHITE BLOOD COUNT 8.01 K/uL (4.8-10.8)
[2017-01-24 14:16] LABS: BUN/CREATININE RATIO 9.1 (10-20); CALCIUM 8.7 mg/dl (8.5-10.1); CREATININE 0.8 mg/dl (0.60-1.20)
[2017-01-24] MEDS ORDERED: OPTIRAY 320 IV PRN (14:45)
--- NOTE | 2017-01-24 15:26 | DIAGNOSTIC IMAGING REPORT ---
(CHEST FOR PE) ANGIO WITH CT DOSE: 206.24 mGy.cm HISTORY: Chest pain dyspnea TECHNIQUE: Multiaxial CT images of the chest were performed following the intravenous administration of contrast to evaluate the pulmonary arteries. Maximal intensity projection images were also obtained. A dose lowering technique was utilized adhering to the principles of ALARA. COMPARISON STUDY: None. FINDINGS: There is a normal caliber thoracic aorta with no evidence for dissection. There is no evidence for pulmonary embolus. No pleural effusions. No pneumothorax. The liver and spleen are unremarkable. No mediastinal or hilar lymphadenopathy. The central airways are patent. The lungs are clear. IMPRESSION: No evidence for pulmonary embolus. The lungs are clear. The above report was generated using voice recognition software. It may contain grammatical, syntax or spelling errors. Electronically signed by: Michael Cruz M.D. 01/24/2017 3:24 PM Dictated Date/Time: 01/24/2017 3:21 PM
[2017-01-24] MEDS ORDERED: KETOROLAC TROMETHAMINE 30 MG/ML VIAL IV STA (15:38)
[2017-01-24] MEDS ORDERED: TRAMADOL/ACETAMINOPHEN 37.5/325MG TAB PO STA (15:38)
[2017-01-24] MEDS ORDERED: OXYC1TAB3 PO (16:31)
--- NOTE | 2017-01-24 16:31 | EMERGENCY ROOM VISIT NOTE ---
History Report prepared by Morena: Kennedy Chen Under the Supervision of: Dr. Jt Dumont M.D. First contact with patient: 12:45 Chief Complaint: ABDOMINAL PAIN Stated Complaint: R ABD PAIN - 8 DAYS Nursing Triage Summary: Pt c/o right sided abd pain, constant, severe x 8 days. Taking 800mg for the pain prescribed for her endemetriosis. Denies n/v/d/constipation other than what is normal for her. Denies urinary symptoms. History of Present Illness The patient is a 36 year old white female with a past medical history of depression, anxiety, and stage 4 endometriosis who presents to the ED with a cc of intermittent RUQ abdominal pain beginning eight days ago. Pain worsened with eating. Seen by [facility] shortly prior to arrival and was referred to the ED for further evaluation. Positive back pain. Also has had a cough and occasional SOB, but states that there are chronic. Patient is a smoker. Negative nausea, vomiting, diarrhea, urinary symptoms, rashes. Has hiatal scan scheduled in a few weeks. Trying to quit drinking alcohol to take depression medications. No recent travel, or antibiotic use. No history of kidney stones. Has had surgery for endometriosis, but states that it did not help her symptoms. Pain does not feel like endometriosis. receives Depo shots, but notes that she still has menstrual periods. Source of History: patient Onset: Eight days ago Position: other (right flank) Timing: intermittent Modifying Factors (Worsening): eating Associated Symptoms: + back pain, No nausea, No vomiting, No diarrhea, No urinary symptoms Review of Systems See HPI for pertinent positives and negatives. A total of ten systems were reviewed and were otherwise negative. Past Medical & Surgical Medical Problems: (1) Anxiety (2) Depression (3) Dysmenorrhea, Unspecified (4) Endometriosis, Unspecified (5) Nicotine Dependence, Unspecified, Uncomplicated Surgical Problems: (1) History of laparoscopy Family History FH: breast cancer Social History Smoking Status: Current Every Day Smoker Alcohol Use: occasionally Marital Status: Housing Status: lives with family Occupation Status: employed Current/Historical Medications Scheduled Fluoxetine (Prozac), 10 MG PO HS Leuprolide Acetate (Lupron Depot), 3.75 MG IM MONTHLY Norethindrone (Aygestin), 5 MG PO QAM Scheduled PRN Acetaminophen (Tylenol), 1,000 MG PO BID PRN for Pain Ondansetron Hcl (Zofran), 4 MG PO BID PRN for Nausea Oxycodone Immediate Rel Tab (Roxicodone Ir), 5 MG PO Q6H PRN for Pain Polyethylene Glycol 3350 (Miralax), 17 GM PO DAILY PRN for Constipation Scopolamine (Transderm-Scop), 1 PATCH TD Q72H PRN for Nausea Allergies Coded Allergies: Codeine (Verified Adverse Reaction, Mild, nausea, 01/24/17) severe nausea Physical Exam Vital Signs Date Time Temp Pulse Resp B/P (MAP) Pulse Ox O2 Delivery O2 Flow Rate FiO2 01/24/17 17:02 59 17 128/81 99 Room Air 01/24/17 15:36 56 17 110/79 98 Room Air 01/24/17 13:55 75 01/24/17 13:45 37.0 74 18 126/80 96 Room Air 01/24/17 12:25 37.2 57 16 119/78 100 Room Air Physical Exam GENERAL: Awake, alert, well-appearing, NAD HENT: Normocephalic, atraumatic. EYES: Normal conjunctiva. Sclera non-icteric. NECK: Supple. No nuchal rigidity. FROM. RESPIRATORY: CTAB, no rhonchi, wheezing, crackles CARDIAC: RRR, no MRG ABDOMEN: Soft, NTND, BS+ MSK: No LE edema. Reproducible mid axillary rib TTP. No step offs. No rashes, no crepitus. NEURO: GCS 15, CN 2-12 intact, moves all 4s on command SKIN: No rash or jaundice noted. Medical Decision & Procedures ER Provider Diagnostic Interpretation: Radiology results as stated below per my review and radiologist interpretation: CHEST ONE VIEW PORTABLE FINDINGS: The bones soft tissues and hemidiaphragms are normal. The cardiomediastinal silhouette is normal. The lungs are clear. The pulmonary vasculature is normal. IMPRESSION: Negative chest. The above report was generated using voice recognition software. It may contain grammatical, syntax or spelling errors. Electronically signed by: Michael Cruz M.D. 01/24/2017 1:35 PM (CHEST FOR PE) ANGIO WITH FINDINGS: There is a normal caliber thoracic aorta with no evidence for dissection. There is no evidence for pulmonary embolus. No pleural effusions. No pneumothorax. The liver and spleen are unremarkable. No mediastinal or hilar lymphadenopathy. The central airways are patent. The lungs are clear. IMPRESSION: No evidence for pulmonary embolus. The lungs are clear. The above report was generated using voice recognition software. It may contain grammatical, syntax or spelling errors. Electronically signed by: Michael Cruz M.D. 01/24/2017 3:24 PM Laboratory Results 01/24/17 13:40 Red Blood Count 4.17, Mean Corpuscular Volume 90.4, Mean Corpuscular Hemoglobin 29.7, Mean Corpuscular Hemoglobin Concent 32.9, Mean Platelet Volume 9.5, Neutrophils (%) (Auto) 59.0, Lymphocytes (%) (Auto) 27.6, Monocytes (%) (Auto) 11.6, Eosinophils (%) (Auto) 1.2, Basophils (%) (Auto) 0.5, Neutrophils # (Auto ) 4.72, Lymphocytes # (Auto) 2.21, Monocytes # (Auto) 0.93, Eosinophils # (Auto ) 0.10, Basophils # (Auto) 0.04 01/24/17 13:40 Test 01/24/17 13:19 01/24/17 13:40 Urine Color YELLOW Urine Appearance CLEAR (CLEAR) Urine pH 6.5 (4.5-7.5) Urine Specific [place] 1.016 (1.000-1.030) Urine Protein NEG (NEG) Urine Glucose (UA) NEG (NEG) Urine Ketones NEG (NEG) Urine Occult Blood NEG (NEG) Urine Nitrite NEG (NEG) Urine Bilirubin NEG (NEG) Urine Urobilinogen NEG (NEG) Urine Leukocyte Esterase TRACE (NEG) Urine WBC (Auto) 1-5 /hpf (0-5) Urine RBC (Auto) 0-4 /hpf (0-4) Urine Hyaline Casts (Auto) 1-5 /lpf (0-5) Urine Epithelial Cells (Auto) 10-20 /lpf (0-5) Urine Bacteria (Auto) NEG (NEG) White Blood Count 8.01 K/uL (4.8-10.8) Red Blood Count 4.17 M/uL (4.2-5.4) Hemoglobin 12.4 g/dL (12.0-16.0) Hematocrit 37.7 % (37-47) Mean Corpuscular Volume 90.4 fL (80-100) Mean Corpuscular Hemoglobin 29.7 pg (25-34) Mean Corpuscular Hemoglobin Concent 32.9 g/dl (32-36) Platelet Count 263 K/uL (130-400) Mean Platelet Volume 9.5 fL (7.4-10.4) Neutrophils (%) (Auto) 59.0 % Lymphocytes (%) (Auto) 27.6 % Monocytes (%) (Auto) 11.6 % Eosinophils (%) (Auto) 1.2 % Basophils (%) (Auto) 0.5 % Neutrophils # (Auto) 4.72 K/uL (1.4-6.5) Lymphocytes # (Auto) 2.21 K/uL (1.2-3.4) Monocytes # (Auto) 0.93 K/uL (0.11-0.59) Eosinophils # (Auto) 0.10 K/uL (0-0.5) Basophils # (Auto) 0.04 K/uL (0-0.2) RDW Standard Deviation 47.4 fL (36.4-46.3) RDW Coefficient of Variation 14.3 % (11.5-14.5) Immature Granulocyte % (Auto) 0.1 % Immature Granulocyte # (Auto) 0.01 K/uL (0.00-0.02) D-Dimer 690 ug/L FEU (0-500) Anion Gap 6.0 mmol/L (3-11) Est Creatinine Clear Calc Drug Dose 86.6 ml/min Estimated GFR () 109.2 Estimated GFR (Non- 94.2 BUN/Creatinine Ratio 9.1 (10-20) Calcium Level 8.7 mg/dl (8.5-10.1) Total Bilirubin 0.4 mg/dl (0.2-1) Direct Bilirubin 0.2 mg/dl (0-0.2) Aspartate Amino Transf (AST/SGOT) 11 U/L (15-37) Alanine Aminotransferase (ALT/SGPT) 28 U/L (12-78) Alkaline Phosphatase 39 U/L (45-117) Total Protein 6.3 gm/dl (6.4-8.2) Albumin 3.3 gm/dl (3.4-5.0) Lipase 81 U/L (73-393) Laboratory results reviewed by me Medications Administered Medications (Trade) Dose Ordered Sig/Jose Route Start Time Stop Time Status Last Admin Dose Admin Ondansetron HCl (Zofran Inj) 4 mg NOW STAT IV 01/24/17 13:05 01/24/17 13:08 DC 01/24/17 13:42 4 MG Acetaminophen (Tylenol Tab) 1,000 mg NOW STAT PO 01/24/17 13:05 01/24/17 13:08 DC 01/24/17 13:43 1,000 MG Morphine Sulfate (MoRPHine SULFATE INJ) 4 mg NOW STAT IV 01/24/17 13:05 01/24/17 13:08 DC 01/24/17 13:42 4 MG Ketorolac Tromethamine (Toradol Inj) 30 mg NOW STAT IV 01/24/17 15:38 01/24/17 15:39 DC 01/24/17 15:52 30 MG Tramadol/ Acetaminophen (Ultracet Tab) 1 tab ONE STAT PO 01/24/17 15:38 01/24/17 15:39 DC 01/24/17 15:52 1 TAB ECG Indication: abdominal pain Rate (beats per minute): 52 Rhythm: sinus bradycardia Findings: no ectopy, other (Normal intervals. Normal axis. ) ED Course 1256: The patient was evaluated in room A2. A complete history and physical exam was performed. 1615: I reevaluated the patient. Discussed results and discharge instructions: she verbalized understanding and agreement. The patient is ready for discharge. Medical Decision The patient is a 36 year old white female with a past medical history of depression, anxiety, stage 4 endometriosis who presents to the ED with a cc of intermittent RUQ abdominal pain. Differential diagnosis includes etiologies such as cardiac ischemia, aortic dissection, pulmonary embolism, pneumonia, pneumothorax, musculoskeletal, infections, pericarditis, myocarditis, esophageal rupture, gastrointestinal, as well as others were entertained. Patient was seen and evaluated the bedside patient did have a prior history of being evaluated the chest x-ray as well as a gallbladder ultrasound which were both negative. Patient does describe some questionable pleuritic and right- sided stabbing chest wall pain. This pain is reproducible. Patient does not have any exertional dyspnea. She does not describe the chest pain as pressure does not radiate to the arm or jaw and is not exertional in nature. Patient does have a history of double shot is a smoker. Patient denies any recent car or plane travel. Given the patient has a likely low risk she had a d-dimer that was drawn in addition to other blood work EKG and chest x-ray. Patient's chest x-ray was unremarkable. Patient did have an elevated d-dimer but no other elevations are abdominal maladies her lab work. Given the patient had a prior right carotid ultrasound was negative and the patient really doesn't have any right upper quadrant pain and ultrasound was not obtained at this time. Furthermore, the patient does have an outpatient HIDA scan pending. Patient's d -dimer was positive this is CT PE protocol was performed. Patient had a negative CT PE protocol. I did explain all the findings the patient was told that she may need to investigate further with a possible paint trimmer pipe bowls. Patient was also told that given the relatively normal blood work today did not seem necessary to get any additional imaging of the abdomen. Patient is amenable to this plan of care as her pain is mildly improved. Patient was also told she can take Pepcid in addition to the pain medications as prescribed. Patient was told that the narcotic medications have a forming and that she should not use them and axis. Furthermore, the patient was told that she should use them only after she has tried [id number] medications without improvement. Patient was agreeable to this plan of care. Patient was deemed suitable for outpatient follow-up and treatment. Patient was given strict follow-up, discharge, and return precautions. All questions were answered. Patient was deemed suitable for outpatient follow-up at this time. Patient agreed with the plan of care and was safely discharged home. Medication Reconcilliation Current Medication List: was personally reviewed by me Blood Pressure Screening Patient's blood pressure: Normal blood pressure Blood pressure disposition: Did not require urgent referral Impression Primary Impression: Chest wall pain Scribe Attestation The scribe's documentation has been prepared under my direction and personally reviewed by me in its entirety. I confirm that the note above accurately reflects all work, treatment, procedures, and medical decision making performed by me. Departure Information Dispostion Home / Self-Care Prescriptions Oxycodone Immediate Rel Tab (ROXICODONE IR) 5 Mg Tab 5 MG PO Q6H Y for Pain, #12 TAB Prov: Jt Dumont M.D. 01/24/17 Referrals Inga Dinh CRNP (PCP) Patient Instructions ED Chest Pain NonCardiac, My [facility] Additional Instructions Please return to the emergency department if you have worsening or recurrent symptoms not amenable to at-home treatment. Please call for a follow-up appointment with her primary care physician. Please take your medications as prescribed. If you have other concerns and/or complaints please feel free to also call your primary care physician's office or return the ED for further evaluation, management, and treatment. You received narcotic or benzodiazepene medication while in the emergency room today. This is an addictive medication that may cause drowziness as well as constipation. Do not drive, operate heavy machinery, or drink alcohol under the influence of this medication. You may take 600 mg Ibuprofen every 6 hours as needed for pain with food for no more than 2 consecutive days. You may take tylenol 1000 mg every 6 hours as needed for pain. You may take motrin and tylenol separately or at the same time. Also take pepcid daily. Consider smoking cessation. Take your medications as prescribed. You have been examined and treated today on an emergency basis only. This is not a substitute for, or an effort to provide, complete comprehensive medical care. It is impossible to recognize and treat all injuries or illnesses in a single emergency department visit. It is therefore important that you follow up closely with [facility], your PCP, and/or your specialist(s). Call as soon as possible for an appointment. Thank you for your time and consideration. I look forward to speaking with you again soon. Please don't hesitate to call us if you have any questions.
[2017-01-24 17:02] VITALS: BP 128/81; PULSE 59; O2SAT 99
== END 2017-01-24 17:07 | disposition home or self-care (01) ==
LOC: C.EDB 12:00 → C.EDA 17:07
DX: R07.89 Other chest pain (principal); R10.11 Right upper quadrant pain; R00.1 Bradycardia, unspecified; M54.9 Dorsalgia, unspecified; N80.9 Endometriosis, unspecified; F32.9 Major depressive disorder, single episode, unspecified; F41.9 Anxiety disorder, unspecified; Z79.899 Other long term (current) drug therapy; F17.200 Nicotine dependence, unspecified, uncomplicated; Z80.3 Family history of malignant neoplasm of breast

== ENCOUNTER → 2017-01-29 | Day surgery (SDC) | payer OTHER ==
[2017-01-17 08:23] VITALS: Ht 165.1 cm; Wt 63.6 kg
[~2017-01-29] VITALS: Ht 165.1 cm; Wt 63.6 kg
[~2017-01-29] MED LIST changes: +DICY10CA55 PO; +FENTANYL CITRATE INJ 50 MCG/1 ML 2 ML VIAL ONE; +LIDOCAINE HCL 2% 2 ML VIAL (20MG/ML) ONE; +OXYC1TAB3 PO; +PRLSR20 PO; +PROPOFOL IV EMULSION 10 MG/ML 20 ML VIAL IV ONE; +SIME80CH PO
--- NOTE | 2017-01-29 11:07 | Endo History and Physical ---
History & Physical Date of Service: Jan 29, 2017. Chief Complaint: ABD Pain, Nausea, Vomiting Referring Physician: Inga IBARRA History of Present Illness 36 yo CF who presents for EGD secondary to abdominal pain, nausea and vomiting. Past Medical History Gynecological Problems Past Surgical History Hx Cardiac Surgery: No Hx Internal Defibrillator: No Hx Pacemaker: No Hx Abdominal Surgery: Yes (LAPAROSCOPY X 2) Hx of Implantable Prosthesis: No Hx Post-Op Nausea and Vomiting: Yes Hx Cancer Surgery: No Hx Thoracic Surgery: No Hx Orthopedic: No Hx Urinary Tract Surgery: No Family History None Social History Smoking Status: Current Every Day Smoker Hx Substance Use: Yes (OCCAS. MARIJUANA "FOR NAUSEA") Hx Alcohol Use: Yes (STOPPED DRINKING ADVICED LAST FRIDAY(3-4 DRINKS DAILY BEFORE)) Allergies Coded Allergies: Codeine (Verified Adverse Reaction, Mild, nausea, 01/24/17) severe nausea Current Medications Reported Home Medications Medications Dose Route/Sig Max Daily Dose Days Date Category Dose Instructions Roxicodone Ir (Oxycodone HCl) 5 Mg Tab 5 Mg PO Q6H PRN 01/24/17 Rx Prozac (Fluoxetine HCl) 10 Mg Cap 10 Mg PO HS 01/17/17 Reported HAS NOT STARTED RX YET. Lupron Depot (Leuprolide Acetate) 3.75 Mg/Ml Kit 3.75 Mg IM MONTHLY 12/11/16 Reported Aygestin (Norethindrone Acetate) 5 Mg Tab 5 Mg PO QAM 11/21/16 Reported Tylenol (Acetaminophen) 500 Mg Tab 1,000 Mg PO BID PRN 11/21/16 Reported Miralax (Polyethylene Glycol 3350) 1 Pow Pow 17 Gm PO DAILY PRN 11/21/16 Reported Transderm-Scop (Scopolamine) 1 Mg/3 Days Dis 1 Patch TD Q72H PRN 08/19/16 Reported Zofran (Ondansetron HCl) 4 Mg Tab 4 Mg PO BID PRN 02/26/16 Reported Vital Signs Weight (Kilograms): 63.64 Height (Feet): 5 Height (Inches): 5 Date Time Temp Pulse Resp B/P (MAP) Pulse Ox O2 Delivery O2 Flow Rate FiO2 01/29/17 10:56 36.7 52 16 88/55 (66) 97 Room Air Physical Exam General Appearance: WD/WN, no apparent distress Respiratory/Chest: Auscultation: breath sounds normal Cardiovascular: Heart Auscultation: RRR Abdomen: Bowel Sounds: normal Inspection & Palpation: soft, non-distended, no tenderness, guarding & rebound Assessment and Plan Assessment: 36 yo CF who presents for EGD secondary to abdominal pain, nausea and vomiting. Plan: Proceed with colonoscopy.
--- NOTE | 2017-01-29 12:03 | Discharge Instructions ---
Endoscopy Patient Instructions Date / Procedure(s) Performed Jan 29, 2017. EGD Allergy Information Coded Allergies: Codeine (Verified Adverse Reaction, Mild, nausea, 01/24/17) severe nausea Discharge Date / Findings Jan 29, 2017. Gastritis s/p biopsies Medication Instructions OK to resume all medications today as prescribed Reported Home Medications Medications Dose Route/Sig Max Daily Dose Days Date Category Dose Instructions Roxicodone Ir (Oxycodone HCl) 5 Mg Tab 5 Mg PO Q6H PRN 01/24/17 Rx Prozac (Fluoxetine HCl) 10 Mg Cap 10 Mg PO HS 01/17/17 Reported HAS NOT STARTED RX YET. Lupron Depot (Leuprolide Acetate) 3.75 Mg/Ml Kit 3.75 Mg IM MONTHLY 12/11/16 Reported Aygestin (Norethindrone Acetate) 5 Mg Tab 5 Mg PO QAM 11/21/16 Reported Tylenol (Acetaminophen) 500 Mg Tab 1,000 Mg PO BID PRN 11/21/16 Reported Miralax (Polyethylene Glycol 3350) 1 Pow Pow 17 Gm PO DAILY PRN 11/21/16 Reported Transderm-Scop (Scopolamine) 1 Mg/3 Days Dis 1 Patch TD Q72H PRN 08/19/16 Reported Zofran (Ondansetron HCl) 4 Mg Tab 4 Mg PO BID PRN 02/26/16 Reported Provider Instructions Activity Restrictions - No exercising or heavy lifting for 24 hours. - Do not drink alcohol the day of the procedure. - Do not drive a car or operate machinery until the day after the procedure. - Do not make any important decisions or sign important papers in 24 hours after the procedure. Following Day: - Return to full activity which may include returning to work/school. Diet Start your diet with liquids and light foods (jello, soup, juice, toast). Then eat your usual diet if not nauseated. Treatment For Common After Affects For mild abdominal pain, bloating, or excessive gas: - Rest - Eat lightly - Lie on right side Follow-Up Information Follow-up with Inga IBARRA as scheduled Anesthesia Information What You Should Know You have had a procedure that required some medicine to reduce anxiety and discomfort. This treatment is called moderate sedation. After receiving the treatment, you may be sleepy, but you will be able to breathe on your own. The effects of the treatment may last for several hours. Follow these instructions along with Activity/Diet recommendations noted above: * Do NOT do anything where dizziness or clumsiness would be dangerous. * Rest quietly at home today, then you can be up and about tomorrow. * Have a responsible person stay with you the rest of today. * You may have had an I.V. today. If so, you may take the dressing off later today. Recommendations Call your doctor if: * Trouble breathing * Continuous vomiting for more than 24 hours * Temperature above 101 degrees * Severe abdominal pain or bloating * Pain not relieved by pain medicine ordered * There is increased drainage or redness from any incision * A large amount of rectal bleeding greater than 2-3 tablespoons. (If you had a polyp/s removed or have hemorrhoids, a small amount of blood - from the rectum is to be expected.) * You have any unanswered questions or concerns. IN THE EVENT OF A SERIOUS EMERGENCY, GO TO THE NEAREST EMERGENCY ROOM Your discharge instructions were prepared by provider Melo David. Patient Instructions Signature Page Reba Busch Patient (or Guardian) Signature/Date: I have read and understand the instructions given to me by my caregivers. Caregiver/RN/Doctor Signature/Date: The above-named patient and/or guardian has received patient instructions on this date. + Original Patient Signature Page (only) stays with chart. Please make copy for patient.
--- NOTE | 2017-01-29 12:07 | GI REPORT ---
Procedure Date: 01/29/2017 11:39 AM Procedure: Upper GI endoscopy Indications: Abdominal pain in the right upper quadrant, Nausea with vomiting Medicines: Monitored Anesthesia Care Complications: No immediate complications. Estimated Blood Loss: Estimated blood loss: none. Procedure: Pre-Anesthesia Assessment: - Prior to the procedure, a History and Physical was performed, and patient medications and allergies were reviewed. The patient's tolerance of previous anesthesia was also reviewed. The risks and benefits of the procedure and the sedation options and risks were discussed with the patient. All questions were answered, and informed consent was obtained. Prior Anticoagulants: The patient has taken no previous anticoagulant or antiplatelet agents. ASA Grade Assessment: II - A patient with mild systemic disease. After reviewing the risks and benefits, the patient was deemed in satisfactory condition to undergo the procedure. After obtaining informed consent, the endoscope was passed under direct vision. Throughout the procedure, the patient's blood pressure, pulse, and oxygen saturations were monitored continuously. The scope was introduced through the mouth, and advanced to the second part of duodenum. The upper GI endoscopy was accomplished without difficulty. The patient tolerated the procedure well. Findings: The examined esophagus was normal. Localized mild inflammation characterized by erythema was found in the gastric antrum. Biopsies were taken with a cold forceps for histology. The examined duodenum was normal. Impression: - Normal esophagus. - Gastritis. Biopsied. - Normal examined duodenum. Recommendation: - Resume previous diet. - Continue present medications. - Await pathology results. - Return to primary care physician as previously scheduled. Melo David, 01/29/2017 12:07:00 PM This report has been signed electronically. Note Initiated On: 01/29/2017 11:39 AM I attest to the content of the Intraoperative Record and orders documented therein, exceptions below
--- NOTE | 2017-01-29 12:33 | Anesthesiology Progress Note ---
Anesthesia Post Op Note Date & Time Jan 29, 2017 at 12:33 Vital Signs Pain Intensity: 3 Vital Signs Past 12 Hours Date Time Temp Pulse Resp B/P (MAP) Pulse Ox O2 Delivery O2 Flow Rate FiO2 01/29/17 12:24 68 16 107/79 (88) 98 Room Air 01/29/17 12:09 86 12 111/62 (78) 97 Room Air 01/29/17 10:56 36.7 52 16 88/55 (66) 97 Room Air Notes Mental Status: alert / awake / arousable, participated in evaluation Pt Amnestic to Procedure: Yes Nausea / Vomiting: adequately controlled Pain: adequately controlled Airway Patency, RR, SpO2: stable & adequate BP & HR: stable & adequate Hydration State: stable & adequate Anesthetic Complications: no major complications apparent
[2017-01-29 12:39] VITALS: BP 125/75; PULSE 54; O2SAT 98
== END | disposition home or self-care (01) ==
LOC: C.GI 10:00
PROVIDERS: ATTEND Internal Medicine
DX: K29.50 Unspecified chronic gastritis without bleeding (principal); R10.9 Unspecified abdominal pain

== ENCOUNTER 2017-02-01 11:35 | Emergency (ER) | payer OTHER ==
[~2017-02-01] VITALS: Ht 165.1 cm; Wt 67.7 kg
[~2017-02-01 11:35] MED LIST changes: -DICY10CA55 PO; -FENTANYL CITRATE INJ 50 MCG/1 ML 2 ML VIAL ONE; -LIDOCAINE HCL 2% 2 ML VIAL (20MG/ML) ONE; -PRLSR20 PO; -PROPOFOL IV EMULSION 10 MG/ML 20 ML VIAL IV ONE; -SIME80CH PO
[2017-02-01 11:38] VITALS: TEMP 36.6; Ht 165.1 cm; Wt 67.7 kg
[2017-02-01] MEDS ORDERED: KETOROLAC TROMETHAMINE 30 MG/ML VIAL IV STA (11:53)
[2017-02-01] MEDS ORDERED: ONDANSETRON INJ 2 MG/ML 2 ML VIAL IV STA (11:53)
[2017-02-01] MEDS ORDERED: SIME80CH PO (12:17)
[2017-02-01] MEDS ORDERED: DICY10CA55 PO (12:17)
[2017-02-01] MEDS ORDERED: PRLSR20 PO (12:17)
[2017-02-01 12:30] LABS: BASO % 0.4 %; BASO ABS # 0.03 K/uL (0-0.2); COMPLETE YES; HEMATOCRIT 40.9 % (37-47); IG% 0.1 %; LYMPH % 8.8 %; MEAN CELL VOLUME 88.9 fL (80-100); MEAN CORPUSCULAR HGB CONC 33.7 g/dl (32-36); MEAN PLATELET VOLUME 10.1 fL (7.4-10.4); MONO % 4.5 %; NEUT % 86.2 %; PLATELET COUNT 322 K/uL (130-400)
[2017-02-01 12:37] LABS: URINE APPEARANCE CLEAR (CLEAR); URINE BILIRUBIN NEG (NEG); URINE COLOR DK YELLOW; URINE EPITHELIAL CELL AUTO >30 /lpf (0-5); URINE NITRITE NEG (NEG); URINE PH >= 9.0 (4.5-7.5); URINE SPECIFIC GRAVITY 1.022 (1.000-1.030); UROBILINOGEN NEG (NEG); ZZUR CULT IF INDIC CLEAN CATCH NO
[2017-02-01 12:46] LABS: CALCIUM 9.5 mg/dl (8.5-10.1); CREATININE 0.89 mg/dl (0.60-1.20); POTASSIUM 3.8 mmol/L (3.5-5.1)
[2017-02-01 12:57] LABS: MANUAL MICROSCOPIC REQUIRED? NO; REVIEW REQ? NO; SULFASALICYLIC ACID NEG (NEG)
[2017-02-01] MEDS ORDERED: PROCHLORPERAZINE 5 MG/ML 2 ML VIAL IV STA (13:11)
[2017-02-01] MEDS ORDERED: PANTOprazole INJ 40 MG in SYRINGE 0 ML IV ONE (13:15)
--- NOTE | 2017-02-01 14:15 | EMERGENCY ROOM VISIT NOTE ---
History First contact with patient: 11:43 Chief Complaint: ABDOMINAL PAIN Stated Complaint: CRAMPS,VOMITING,SEVERE ABDOMINAL PAIN Nursing Triage Summary: Pt c/o severe cramps, abd pain, n/v/d, constipation since this am. Currently being treated for Gastritis. took a Bentyl this am, no improvement. Hx of Endometriosis History of Present Illness The patient is a 36 year old female who presents to the Emergency Room with complaints of severe lower abdominal cramps, generalized abdominal pain, nausea vomiting. The patient states that she had 3 small bowel movements today which were painful. The patient denies any fever. The patient admits to a history of chronic abdominal pain. She was on Motrin and oxycodone but was taken off of those and placed on Bentyl. She also sees a pain clinic for her chronic abdominal pain. She states she took a Bentyl this morning and things got worse. The patient also admits that she has endometriosis and is followed by Dr. Duncan. He has her on monthly Lupron injections she missed on . Review of Systems 10 system review was performed and was negative unless stated otherwise history of present illness. Past Medical/Surgical History Medical Problems: (1) Anxiety (2) Depression (3) Dysmenorrhea, Unspecified (4) Endometriosis, Unspecified (5) Nicotine Dependence, Unspecified, Uncomplicated Surgical Problems: (1) History of laparoscopy Family History FH: breast cancer Social History Smoking Status: Current Every Day Smoker Alcohol Use: occasionally Marital Status: Housing Status: lives with family Occupation Status: employed Current/Historical Medications Scheduled Dicyclomine Hcl (Bentyl), 10 MG PO Q6H Fluoxetine (Prozac), 10 MG PO HS Leuprolide Acetate (Lupron Depot), 3.75 MG IM MONTHLY Norethindrone (Aygestin), 5 MG PO QAM Omeprazole (Prilosec), 20 MG PO DAILY Simethicone (Gas-X), 80 MG PO BID Scheduled PRN Acetaminophen (Tylenol), 1,000 MG PO BID PRN for Pain Ondansetron Hcl (Zofran), 4 MG PO BID PRN for Nausea Polyethylene Glycol 3350 (Miralax), 17 GM PO DAILY PRN for Constipation Scopolamine (Transderm-Scop), 1 PATCH TD Q72H PRN for Nausea Allergies Coded Allergies: Codeine (Verified Adverse Reaction, Mild, nausea, 02/01/17) severe nausea Physical Exam Vital Signs Date Time Temp Pulse Resp B/P (MAP) Pulse Ox O2 Delivery O2 Flow Rate FiO2 02/01/17 13:35 72 18 128/88 98 Room Air 02/01/17 11:38 36.6 71 20 160/94 100 Room Air Physical Exam GENERAL: 36-year-old white female appears uncomfortable secondary to pain. MENTAL Status: Alert and oriented 3. MOUTH: Mucosa is moist NECK: Supple, no lymphadenopathy noted. No carotid bruits noted. LUNGS: Clear auscultation without wheezes rales or rhonchi. CARDIAC: Regular rate and rhythm without murmur. Pulses is full and equal throughout. BACK: No CVA tenderness noted. ABDOMEN: Positive bowel sounds all 4 quadrants. Generalized tenderness to palpation without organomegaly or masses. EXTREMITIES: No cyanosis or edema noted. Medical Decision & Procedures Laboratory Results 02/01/17 12:00 Red Blood Count 4.60, Mean Corpuscular Volume 88.9, Mean Corpuscular Hemoglobin 30.0, Mean Corpuscular Hemoglobin Concent 33.7, Mean Platelet Volume 10.1, Neutrophils (%) (Auto) 86.2, Lymphocytes (%) (Auto) 8.8, Monocytes (%) (Auto) 4.5, Eosinophils (%) (Auto) 0.0, Basophils (%) (Auto) 0.4, Neutrophils # (Auto) 6.90, Lymphocytes # (Auto) 0.70, Monocytes # (Auto) 0.36, Eosinophils # (Auto) 0.00, Basophils # (Auto) 0.03 02/01/17 12:00 Test 02/01/17 12:00 02/01/17 12:23 White Blood Count 8.00 K/uL (4.8-10.8) Red Blood Count 4.60 M/uL (4.2-5.4) Hemoglobin 13.8 g/dL (12.0-16.0) Hematocrit 40.9 % (37-47) Mean Corpuscular Volume 88.9 fL (80-100) Mean Corpuscular Hemoglobin 30.0 pg (25-34) Mean Corpuscular Hemoglobin Concent 33.7 g/dl (32-36) Platelet Count 322 K/uL (130-400) Mean Platelet Volume 10.1 fL (7.4-10.4) Neutrophils (%) (Auto) 86.2 % Lymphocytes (%) (Auto) 8.8 % Monocytes (%) (Auto) 4.5 % Eosinophils (%) (Auto) 0.0 % Basophils (%) (Auto) 0.4 % Neutrophils # (Auto) 6.90 K/uL (1.4-6.5) Lymphocytes # (Auto) 0.70 K/uL (1.2-3.4) Monocytes # (Auto) 0.36 K/uL (0.11-0.59) Eosinophils # (Auto) 0.00 K/uL (0-0.5) Basophils # (Auto) 0.03 K/uL (0-0.2) RDW Standard Deviation 44.1 fL (36.4-46.3) RDW Coefficient of Variation 13.5 % (11.5-14.5) Immature Granulocyte % (Auto) 0.1 % Immature Granulocyte # (Auto) 0.01 K/uL (0.00-0.02) Anion Gap 8.0 mmol/L (3-11) Est Creatinine Clear Calc Drug Dose 77.9 ml/min Estimated GFR () 96.0 Estimated GFR (Non- 82.8 BUN/Creatinine Ratio 11.0 (10-20) Calcium Level 9.5 mg/dl (8.5-10.1) Total Bilirubin 0.3 mg/dl (0.2-1) Direct Bilirubin 0.1 mg/dl (0-0.2) Aspartate Amino Transf (AST/SGOT) 13 U/L (15-37) Alanine Aminotransferase (ALT/SGPT) 31 U/L (12-78) Alkaline Phosphatase 49 U/L (45-117) Total Protein 7.7 gm/dl (6.4-8.2) Albumin 4.0 gm/dl (3.4-5.0) Lipase 54 U/L (73-393) Urine Color DK YELLOW Urine Appearance CLEAR (CLEAR) Urine pH >= 9.0 (4.5-7.5) Urine Specific [place] 1.022 (1.000-1.030) Urine Protein NEG (NEG) Urine Glucose (UA) NEG (NEG) Urine Ketones 2+ (NEG) Urine Occult Blood 1+ (NEG) Urine Nitrite NEG (NEG) Urine Bilirubin NEG (NEG) Urine Urobilinogen NEG (NEG) Urine Leukocyte Esterase TRACE (NEG) Urine WBC (Auto) 1-5 /hpf (0-5) Urine RBC (Auto) 5-10 /hpf (0-4) Urine Hyaline Casts (Auto) 1-5 /lpf (0-5) Urine Epithelial Cells (Auto) >30 /lpf (0-5) Urine Bacteria (Auto) NEG (NEG) Medications Administered Medications (Trade) Dose Ordered Sig/Jose Route Start Time Stop Time Status Last Admin Dose Admin Ketorolac Tromethamine (Toradol Inj) 30 mg NOW STAT IV 02/01/17 11:53 02/01/17 11:55 DC 02/01/17 12:21 30 MG Ondansetron HCl (Zofran Inj) 4 mg NOW STAT IV 02/01/17 11:53 02/01/17 11:55 DC 02/01/17 12:20 4 MG Prochlorperazine Edisylate (Compazine Inj) 10 mg NOW STAT IV 02/01/17 13:11 02/01/17 13:13 DC 02/01/17 13:27 10 MG Pantoprazole Sodium 40 mg/ Syringe 10 ml @ 5 mls/min NOW ONCE IV 02/01/17 13:15 02/01/17 13:16 DC 02/01/17 13:33 5 MLS/MIN ED Course The patient was evaluated. The patient's EMR medication list were reviewed. The patient just had an endoscopy performed on January 29 which revealed no acute findings or any evidence of H. pylori, neoplasm or inflammation. IV access was obtained. The patient was given Toradol 30 mg IV and Zofran 4 mg IV push. CBC and differential, renal profile, LFTs and lipase levels were ordered. Urinalysis was ordered. Labs are reviewed and were unremarkable. White count was completely normal. Urinalysis revealed a trace of blood and WBCs but no bacteria. Culture is pending. The patient was informed of the findings. The patient was reevaluated and stated that the lower abdominal cramping was better but she still had epigastric pain and was vomiting. The patient was therefore given Compazine 10 mg IV and Protonix 40 mg IV push. The patient was reevaluated and was feeling better. The patient was discharged home in stable condition. Medical Decision The patient has chronic abdominal pain and this pain was similar to what she has had in the past. I do not feel that she needed an additional diagnostic imaging. She just had a endoscopy performed which was negative. Differential diagnosis include endometrial pain,: Spasms, acute gastritis Impression Primary Impression: Abdominal pain Additional Impression: Nausea & vomiting Departure Information Dispostion Home / Self-Care Condition GOOD Referrals Inga Dinh CRNP (PCP) Forms Call Back Authorization, HOME CARE DOCUMENTATION FORM, IMPORTANT VISIT INFORMATION Patient Instructions Abdominal Pain - [facility], ED Nausea Vomiting, [facility] Additional Instructions Push fluids. Follow bland diet. Advance diet slowly as tolerated. Recommend taking [id number] Prilosec as directed by your family physician. Also recommend taking Zantac 150 mg at bedtime. Make sure you get your Lupron injection as soon as possible. Follow up with your family doctor in 2-3 days for recheck. If symptoms worsen in the interim, return to ER. Problem Qualifiers Primary Impression: Abdominal pain Abdominal location: generalized Qualified Codes: R10.84 - Generalized abdominal pain Additional Impression: Nausea & vomiting Vomiting type: unspecified Vomiting Intractability: unspecified Qualified Codes: R11.2 - Nausea with vomiting, unspecified
[2017-02-01 14:22] VITALS: BP 153/81; PULSE 61; O2SAT 98
== END 2017-02-01 14:31 | disposition home or self-care (01) ==
LOC: C.EDB 11:37
DX: R10.9 Unspecified abdominal pain (principal); R11.2 Nausea with vomiting, unspecified; F41.9 Anxiety disorder, unspecified; F32.9 Major depressive disorder, single episode, unspecified; F17.200 Nicotine dependence, unspecified, uncomplicated; Z79.899 Other long term (current) drug therapy; Z88.5 Allergy status to narcotic agent; Z80.3 Family history of malignant neoplasm of breast

== ENCOUNTER → 2017-02-06 | Outpatient (CLI) | payer OTHER ==
[~2017-02-06] MED LIST changes: +DICY10CA55 PO; -OXYC1TAB3 PO; +PRLSR20 PO; +SIME80CH PO
--- NOTE | 2017-02-06 08:50 | DIAGNOSTIC IMAGING REPORT ---
NUCLEAR MEDICINE HEPATOBILIARY SCAN CLINICAL HISTORY: R11.2 Nausea and vomiting in [id number] Abdominal [id number] COMPARISON STUDY: Gallbladder ultrasound dated 01/09/2017 FINDINGS: The patient was injected with 5.7 mCi of technetium 99m Choletec. Sequential anterior imaging was performed. Hepatic excretion appeared unremarkable. There was normal passage of activity into small bowel. The gallbladder was first visualized on the 5 minute image. A small amount of biliary reflux into the stomach is suspected. IMPRESSION: 1. No evidence of cystic duct obstruction 2. A small amount of biliary reflux into the stomach is suspected. Electronically signed by: Endy Han M.D. 02/06/2017 8:49 AM Dictated Date/Time: 02/06/2017 8:47 AM
== END | disposition home or self-care (01) ==
LOC: C.NUCL 07:22
PROVIDERS: ATTEND Registered Nurse
DX: R10.9 Unspecified abdominal pain (principal); R11.2 Nausea with vomiting, unspecified

== ENCOUNTER → 2017-04-24 | Outpatient (CLI) | payer OTHER ==
[2017-04-24 13:14] LABS: BASO % 1.5 %; BASO ABS # 0.13 K/uL (0-0.2); EOS % 2.6 %; EOS ABS # 0.22 K/uL (0-0.5); HEMATOCRIT 42.3 % (37-47); HEMOGLOBIN 14.2 g/dL (12.0-16.0); IG# 0.02 K/uL (0.00-0.02); LYMPH % 25.2 %; LYMPH ABS # 2.15 K/uL (1.2-3.4); MEAN CELL VOLUME 85.6 fL (80-100); MEAN CORPUSCULAR HEMOGLOBIN 28.7 pg (25-34); MEAN CORPUSCULAR HGB CONC 33.6 g/dl (32-36); MEAN PLATELET VOLUME 9.6 fL (7.4-10.4); MONO % 6.4 %; MONO ABS # 0.55 K/uL (0.11-0.59); NEUT % 64.1 %; NEUT ABS # 5.47 K/uL (1.4-6.5); PLATELET COUNT 294 K/uL (130-400); RED CELL DISTRIBUTION WIDTH CV 14.7 % (11.5-14.5); WHITE BLOOD COUNT 8.54 K/uL (4.8-10.8)
[2017-04-24 14:15] LABS: ALBUMIN 3.8 gm/dl (3.4-5.0); ALT/SGPT 25 U/L (12-78); AST/SGOT 17 U/L (15-37); BLOOD UREA NITROGEN 14 mg/dl (7-18); CALCIUM 8.6 mg/dl (8.5-10.1); CARBON DIOXIDE 27 mmol/L (21-32); CREATININE 0.75 mg/dl (0.60-1.20); GLUCOSE 92 mg/dl (70-99); POTASSIUM 4.1 mmol/L (3.5-5.1); SODIUM 137 mmol/L (136-145)
[2017-04-24 14:25] LABS: ALKALINE PHOSPHATASE 36 U/L (45-117)
== END | disposition home or self-care (01) ==
LOC: C.LAB1850 12:04
PROVIDERS: ATTEND Nurse Practitioner Adult Health
DX: R53.83 Other fatigue (principal); F41.8 Other specified anxiety disorders; R74.8 Abnormal levels of other serum enzymes

== ENCOUNTER → 2017-05-19 | Outpatient (CLI) | payer OTHER ==
[2017-05-19 16:54] LABS: HEP C IGG 13 YRS+OLDER_RFLX NEG (NEG)
== END | disposition home or self-care (01) ==
LOC: C.LAB1850 14:31
PROVIDERS: ATTEND Obstetrics & Gynecology
DX: Z11.3 Encounter for screening for infections with a predominantly sexual mode of transmission (principal)

== ENCOUNTER → 2017-05-19 | Outpatient (CLI) | payer OTHER | END | disposition home or self-care (01) | LOC: C.PAPS 17:51 | PROVIDERS: ATTEND Obstetrics & Gynecology | DX: Z01.419 Encounter for gynecological examination (general) (routine) without abnormal findings (principal) ==